=== PATIENT | male | born 1945 | race Caucasian/White ===

== ENCOUNTER 2018-10-16 08:01 | Day surgery (SDC) | payer MEDICARE ==
--- NOTE | 2018-10-09 15:48 | HP ---
PREOPERATIVE HISTORY AND PHYSICAL: DATE OF ADMISSION/SURGERY: 10/16/18 [facility] DATE OF OFFICE VISIT/ENCOUNTER: 10/01/18 ATTENDING SURGEON: Haylie Molina MD * (DICTATED BY ERICKSON MIJARES) PROCEDURE: Left elbow ulnar nerve decompression, left ulnar nerve decompression at the wrist, and left carpal tunnel release. HISTORY OF PRESENT ILLNESS: This is a 72-year-old male with diabetes, who complains of numbness in his left hand, specifically the ring and little fingers that has been ongoing for a couple of months. He denies any specific injury. He is not complaining of pain, but the numbness is quite bothersome. He works part- time at [employer] and also plays the [employer]. The numbness in his hand is particularly causing him problems when he is trying to play the [employer]. He denies any recent injury to the left elbow. He had a nerve conduction EMG performed, which showed left ulnar neuropathy at the elbow , compression of the ulnar nerve at the wrist along with left carpal tunnel syndrome. He has elected to proceed with surgical intervention for these problems at this time. PAST MEDICAL HISTORY: 1. Diabetes. 2. Depression/anxiety. 3. Hypercholesterolemia. 4. Sleep apnea. 5. Hypertension. PAST SURGICAL HISTORY: Parathyroidectomy in 2005. CURRENT MEDICATIONS: 1. Celexa 10 mg daily. 2. Januvia 100 mg daily. 3. Jardiance 10 mg daily. 4. Losartan potassium/hydrochlorothiazide 100/25 mg daily. 5. Metformin HCl 500 mg twice a day. 6. Simvastatin 20 mg daily. ALLERGIES: No known drug allergies. FAMILY MEDICAL HISTORY: Diabetes and hypertension. SOCIAL HISTORY: The patient is retired, but he works part-time at [employer]. 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 He denies tobacco use, recreational drug use, and does not drink alcohol. REVIEW OF SYSTEMS: Negative for general, cephalic, cardiovascular, respiratory , GI, , other musculoskeletal, integumentary, endocrine, neurologic, and hematologic symptoms. Infectious Disease: Negative for MRSA, hepatitis C, HIV. PHYSICAL EXAMINATION GENERAL: A well-developed, well-nourished 72-year-old male, in no acute distress. VITAL SIGNS: Height 5 feet 10 inches, weight 158 pounds. Pulse rate 76, blood pressure 130/66. HEENT: Normocephalic, atraumatic. Pupils are equal, round, and reactive to light and accommodation. Extraocular movements are intact. Throat is clear. NECK: Supple. No palpable lymph nodes. PULMONARY: Lungs are clear to auscultation bilaterally. No wheezes, rales, or rhonchi. CARDIOVASCULAR: Regular rate and rhythm. S1, S2. No murmurs, rubs, or gallops. No edema. ABDOMEN: Positive bowel sounds. Soft, nontender. NEUROLOGICAL: Alert and oriented x3. Cranial nerves II through XII are intact. MUSCULOSKELETAL: On exam of his left upper extremity, he has slightly noticeable interosseous wasting on the left hand when compared to the right. He has weakness with finger abduction on the left and decreased sensation to light touch in the ulnar fingers of the left hand. He can make a full fist and fully extend his fingers. He has a positive Tinel sign at the ulnar nerve at the elbow and the wrist. No sensory loss in the median nerve distribution. IMAGING STUDIES: Nerve conduction study, EMG shows mild carpal tunnel syndrome at the left wrist and ulnar nerve compression of the left elbow and likely at the left wrist. IMPRESSION: Ulnar nerve compression on the left and carpal tunnel syndrome on the left. PLAN: The patient is scheduled to undergo a left elbow ulnar nerve decompression, left ulnar nerve decompression at the wrist, and left carpal tunnel release with Dr. Molina on 10/16/18. He will return to the office 10 days postop for followup and suture removal. A prescription for [place] was e- scribed to the patient's pharmacy for postoperative pain management. ERICKSON MIJARES [id number]/[facility] #: [id number] UGO
[~2018-10-16 08:01] MED LIST: Buffered Lidocaine 1% SYRIN* 1 ML/SYRINGE INTRADERM ONE; Lactated Ringers 1000 ML Bag* 1,000 ML IV SCH; Sodium Citrate/Citric Acid* 15 ML UDC ONE; Sodium Citrate/Citric Acid* 15 ML UDC PO ONE
[2018-10-16] MEDS ORDERED: ceFAZolin 2 GM PREMIX in ORs 2 GM/50 ML BAG IVPB ONE (08:35)
[2018-10-16] MEDS ORDERED: Lidocaine 1% INJ* 10 MG/ML 30 ML SDV ONE (09:30)
[2018-10-16] MEDS ORDERED: Bupivacaine 0.5% SDV PF* 30ML VIAL ONE (09:30)
[2018-10-16] MEDS ORDERED: Propofol* 10 MG/ML 20 ML BTL ONE (10:41)
[2018-10-16] MEDS ORDERED: Lidocaine 2% PF * 5 ML VIAL ONE (10:41)
[2018-10-16] MEDS ORDERED: fentaNYL* 50 MCG/ML 2 ML VIAL (100 MCG VIAL) ONE (10:57)
[2018-10-16] MEDS ORDERED: Naloxone* 0.4 MG/ML 1 ML VIAL IV PRN (11:08)
[2018-10-16 12:22] VITALS: BP 159/76
--- NOTE | 2018-10-17 01:26 | OP ---
DATE OF OPERATION: 10/16/18 - [facility] DATE OF : 49 SURGEON: Haylie Molina MD AIRPLANE COVERER: ERICKSON Mercado ANESTHESIA: General. PRE-OP DIAGNOSIS: Ulnar nerve compression at the left wrist and elbow and carpal tunnel syndrome on the left. POST-OP DIAGNOSIS: Ulnar nerve compression at the left wrist and elbow and carpal tunnel syndrome on the left. OPERATIVE PROCEDURE: Ulnar nerve decompression at the elbow, carpal tunnel release, and ulnar nerve decompression at the wrist, all on the left side. ESTIMATED BLOOD LOSS: Zero. TOURNIQUET TIME: Approximately 40 minutes. INDICATIONS FOR PROCEDURE: Ton is a 72-year-old male who has numbness and tingling in his left hand. Physical exam was consistent with ulnar nerve compression at the elbow, in the wrist as well as carpal tunnel syndrome on the left. He presents for carpal tunnel release, ulnar nerve decompression at the elbow and wrist. DESCRIPTION OF PROCEDURE: The patient was brought to the operative room and was given a general anesthetic and placed in the supine position on the operating table with a tourniquet around his left upper arm. Skin of his left upper extremity was prepped and draped in the usual sterile fashion. The upper extremity was exsanguinated and the tourniquet elevated to 250 mmHg. A longitudinal incision was made in the center of the palm. We dissected through the subcutaneous tissue down to the transverse carpal ligament. The ligament was divided sharply with a knife and then more proximally with the scissors. The nerve was dissected free from the surrounding tissue and there was an area of moderate compression in the mid portion of ligament. The incision was then extended proximally, across the wrist creases in zigzag fashion. The ulnar nerve was located proximally and then carefully traced through Guyon's canal completely releasing the nerve which was in good condition. The wound was irrigated and the skin edges reapproximated with 4-0 nylon suture. Next, a curvilinear incision was made centered between the medial epicondyle and the tip of the olecranon process. We dissected through the subcutaneous tissue down to the ulnar nerve proximal to the elbow joint. The ulnar nerve was dissected carefully proximally for several centimeters and then through the cubital tunnel and into the FCU fascia. The superficial and deep portion of the FCU fascia were both divided and the nerve was completely released. The medial intermuscular septum was divided with the Bovie. The wound was irrigated and subcutaneous tissue closed with 2-0 Vicryl, the skin with skin marleny. The wounds were dressed with Xeroform, 4x4, Webril, and an Morgan wrap. The patient tolerated the procedure well and was brought to the recovery room in good condition. [id number]/[facility] #: [id number] MTDD
== END 2018-10-16 12:35 | disposition home or self-care (01) ==
LOC: OREAST 08:01
PROVIDERS: ATTEND Orthopaedic Surgery
DX: G56.22 Lesion of ulnar nerve, left upper limb (principal); G56.02 Carpal tunnel syndrome, left upper limb; E11.9 Type 2 diabetes mellitus without complications; Z79.84 Long term (current) use of oral hypoglycemic drugs; F41.8 Other specified anxiety disorders; E78.00 Pure hypercholesterolemia, unspecified; I10 Essential (primary) hypertension; G47.33 Obstructive sleep apnea (adult) (pediatric)
CPT/HCPCS: A9270-GY; J0690; J2704; J3010; J3490

== ENCOUNTER 2023-03-12 02:22 | Inpatient (IN) ==
[2023-03-12 02:43] LABS: ABS Basophils 0.1 10^3/uL (0.0-0.1); ABS Eosinophils 0.2 10^3/uL (0.0-0.5); ABS Lymphocytes 2.2 10^3/uL (1.0-4.8); ABS Monocytes 0.4 10^3/uL (0.0-1.1); ABS Neutrophils 5.3 10^3/uL (1.5-7.6); ABS Nucleated RBC 0.01 10^3/ul; Eosinophil % 2.2 %; Hematocrit 39.4 % (38-53); Hemoglobin 13.8 g/dL (13.2-16.3); Lymphocyte % 26.8 %; Mean Corpuscular Hemoglobin 30.2 pg (27-33); Mean Corpuscular Volume 86.4 fL (80-97); Mean Platelet Volume 7.5 fL (7.5-11.2); Nucleated Red Blood Cells % 0.1 /100 WBC (0.0-0.4); Platelet Count 378 10^3/uL (150-450); Red Blood Count 4.56 10^6/uL (4.06-5.63); Red Cell Distribution Width 12.2 % (12-17); White Blood Count 8.3 10^3/uL (3.6-10.2)
[2023-03-12 02:56] LABS: INR 1.12 (0.83-1.13)
[2023-03-12 02:59] LABS: Albumin 4.1 g/dL (3.2-5.2); Albumin/Globulin Ratio 1.4 (1-3); Calcium 8.7 mg/dL (8.6-10.3); Creatinine, Serum 1.02 mg/dL (0.67-1.17); Globulin 2.9 g/dL (2-4); Potassium 3.3 mmol/L (3.5-5.0); Total Bilirubin 0.5 mg/dL (0.2-1.0); eGFR CKD-EPI 76.6 (>60)
[2023-03-12] MEDS ORDERED: Iodixanol (CONTRAST) 320 MG/ML 100 ML SDV IV ONE (03:06)
[2023-03-12] MEDS ORDERED: Heparin DRIP 25,000 UNITS BAG 25,000 UNITS/500 ML BAG IV SCH (04:45)
[2023-03-12] MEDS ORDERED: Heparin 5000 UNITS/ML 1 mL VIAL IV SCH (05:00)
[2023-03-12] MEDS ORDERED: Potassium Chlor 20 meq TAB.ER PO ONE (05:19)
[2023-03-12] MEDS ORDERED: Dextrose 50% Syringe 50 ml 25 GM/50 ML SYRINGE IV PUSH PRN (06:33)
[2023-03-12] MEDS ORDERED: Nitro 2% OINT (Nitroglycerin) 1 INCH/PAK TOPICAL ONE (07:30)
[2023-03-12 08:16] LABS: Calcium 8.4 mg/dL (8.6-10.3); Potassium 3.7 mmol/L (3.5-5.0)
[2023-03-12 08:22] LABS: Creatinine, Serum 0.99 mg/dL (0.67-1.17); eGFR CKD-EPI 79.4 (>60)
[2023-03-12 09:32] LABS: ABS Basophils 0.1 10^3/uL (0.0-0.1); ABS Lymphocytes 1.3 10^3/uL (1.0-4.8); ABS Monocytes 0.4 10^3/uL (0.0-1.1); ABS Neutrophils 10.9 10^3/uL (1.5-7.6); ABS Nucleated RBC 0.01 10^3/ul; Eosinophil % 0.1 %; Hematocrit 41.4 % (38-53); Hemoglobin 14.3 g/dL (13.2-16.3); Lymphocyte % 10.2 %; Mean Corpuscular Hemoglobin 30.1 pg (27-33); Mean Corpuscular Hgb Conc 34.5 g/dL (31-36); Mean Corpuscular Volume 87.1 fL (80-97); Nucleated Red Blood Cells % 0.1 /100 WBC (0.0-0.4); Platelet Count 421 10^3/uL (150-450); Red Blood Count 4.75 10^6/uL (4.06-5.63); Red Cell Distribution Width 12.7 % (12-17); White Blood Count 12.7 10^3/uL (3.6-10.2)
[2023-03-12] MEDS ORDERED: nitroGLYCERIN DRIP 25,000 MCG/250 ML BTL IV SCH (10:00)
[2023-03-12] MEDS ORDERED: Naloxone 0.4 mg VIAL 0.4 mg/ml 1 ml VIAL IV PUSH PRN (10:37)
[2023-03-12] MEDS ORDERED: fentaNYL 100 mcg/2 ml 50 MCG/ML VIAL IV SLOW PU ONE (10:37)
[2023-03-12] MEDS ORDERED: Flumazenil 0.5 mg/5 ml 0.1 MG/ML 5 ml VIAL IV PRN (10:37)
[2023-03-12] MEDS ORDERED: Midazolam 10 mg/10 ml VIAL 1 mg/ml 10 ml VIAL (10 mg) IV SLOW PU ONE (10:37)
[2023-03-12] MEDS ORDERED: Midazolam 5 mg/5 ml VIAL 1 mg/ml 5 ml VIAL (5 mg) ONE (10:49)
[2023-03-12] MEDS ORDERED: Iohexol 350 (CONTRAST) 100 ML PAK IV ONE (10:50)
[2023-03-12] MEDS ORDERED: fentaNYL 100 mcg/2 ml 50 MCG/ML VIAL ONE (10:50)
[2023-03-12] MEDS ORDERED: Lidocaine 1% MPF 5 ML VIAL ONE (10:50)
[2023-03-12] MEDS ORDERED: Iohexol 350 (CONTRAST) 200 ML MDV IV ONE (10:50)
[2023-03-12] MEDS ORDERED: Heparin 2 UNITS/ML 1000 mls 1,000 ML IV ONE (10:50)
[2023-03-12] MEDS ORDERED: Heparin 2 UNITS/ML 1000 mls 2,000 ML IV ONE (10:50)
[2023-03-12] MEDS ORDERED: niCARdipine 0.1MG/ML IVPREMIX 20 MG/200 ML BAG IV ONE (10:50)
[2023-03-12] MEDS ORDERED: Heparin 1,000 UNIT/ML 10 ml (10,000 UNITS) CATHLAB/DIALYSIS ONE (10:50)
[2023-03-12] MEDS ORDERED: nitroGLYCERIN DRIP 25,000 MCG/250 ML BTL ONE (10:50)
[2023-03-12] MEDS ORDERED: Ondansetron 4 mg VIAL 2 MG/ML 2 ml VIAL IV PRN (12:12)
[2023-03-13 04:24] LABS: ABS Basophils 0.1 10^3/uL (0.0-0.1); ABS Lymphocytes 1.4 10^3/uL (1.0-4.8); ABS Monocytes 0.7 10^3/uL (0.0-1.1); ABS Neutrophils 8.4 10^3/uL (1.5-7.6); Eosinophil % 0.4 %; Hemoglobin 12.9 g/dL (13.2-16.3); Lymphocyte % 13.3 %; Mean Corpuscular Hemoglobin 30.5 pg (27-33); Mean Corpuscular Hgb Conc 34.9 g/dL (31-36); Mean Corpuscular Volume 87.5 fL (80-97); Mean Platelet Volume 7.8 fL (7.5-11.2); Platelet Count 346 10^3/uL (150-450); Red Blood Count 4.23 10^6/uL (4.06-5.63); Red Cell Distribution Width 13.2 % (12-17); White Blood Count 10.7 10^3/uL (3.6-10.2)
[2023-03-13 05:09] LABS: Albumin 3.8 g/dL (3.2-5.2); Albumin/Globulin Ratio 1.4 (1-3); Calcium 8.4 mg/dL (8.6-10.3); Creatinine, Serum 0.97 mg/dL (0.67-1.17); Globulin 2.7 g/dL (2-4); HDL Cholesterol 47.5 mg/dL; Total Bilirubin 0.8 mg/dL (0.2-1.0); Total Protein 6.5 g/dL (6.4-8.9); eGFR CKD-EPI 81.4 (>60)
[2023-03-13 10:37] LABS: TSH Ultra Thyroid Stim Horm 2.94 mcIU/mL (0.34-5.60)
[2023-03-13 10:39] LABS: Free T4 0.87 ng/dL (0.61-1.12)
[2023-03-13] MEDS ORDERED: Enoxaparin 40 MG/0.4 ML SYR SUBCUT SCH (21:00)
[2023-03-13] MEDS: Insulin ISOPH/REG 70/30 SUBCUT SCH (22:43)
[2023-03-14] MEDS: Insulin ISOPH/REG 70/30 SUBCUT SCH (10:20)
[2023-03-14 13:04] LABS: Hepatitis B Surface Antigen Nonreactive (Nonreactive)
[2023-03-14 13:14] LABS: HIV 4th Generation Nonreactive (Nonreactive)
[2023-03-14 13:21] LABS: Hepatitis B Surface Ab Not Immune (Immune); Hepatitis C Antibody Negative (Negative)
[2023-03-14 14:53] VITALS: BP 107/63
[2023-03-20 12:50] LABS: Anti GAD 65 Antibody 2.78 nmol/L (<= 0.02)
== END 2023-03-14 16:44 | disposition home or self-care (01) | DRG 247 ==
LOC: ED 02:22 → EDHOLD 02:22 → OBSVTOIN 05:18 → SUATTDRO 05:18 → ICU 10:56 → AA 11:17 → ICU 12:33 → MEDTELE 03-13 13:27
PROVIDERS: ADMIT Internal Medicine; ATTEND Internal Medicine